=== PATIENT | female | born 1980 | race Caucasian/White ===

== ENCOUNTER 2019-10-12 07:39 | Inpatient (IN) | payer OTHER ==
[2019-10-12] MEDS ORDERED: LACTATED RINGERS 1,000 ML IV SCH (09:00)
[2019-10-12] MEDS ORDERED: HYDROmorphone 1 MG/1 ML INJ IV PRN (09:15)
[2019-10-12] MEDS ORDERED: fentaNYL 100 MCG/2 ML INJ IV NR (09:15)
[2019-10-12] MEDS ORDERED: MAGNESIUM OXIDE 400 MG TAB PO SCH (09:16)
--- NOTE | 2019-10-12 09:24 | Anesthesia Consultation ---
Anesthesia Consult and Med Hx Date of service: 10/12/19 - Airway Anesthetic Teeth Evaluation: Good ROM Head & Neck: Adequate Mental/Hyoid Distance: Adequate Mallampati Class: Class I Intubation Access Assessment: Good - Pulmonary Exam CTA: Yes - Cardiac Exam Cardiac Exam: RRR - Pre-Operative Health Status ASA Pre-Surgery Classification: ASA2 Proposed Anesthetic Plan: General Nerve Block: TAP - Pulmonary Hx Smoking: No Hx Respiratory Symptoms: No - Cardiovascular System Hx Hypertension: Yes (took antihypertensives last night) Hx Heart Attack/AMI: No Hx Percutaneous Transluminal Coronary Angioplasty (PTCA): No Hx Cardia Arrhythmia: No (rare palpitations w/o associated symptoms) - Central Nervous System CVA: No Hx Psychiatric Problems: No - Gastrointestinal Hx Gastroesophageal Reflux Disease: No - Endocrine Hx Renal Disease: No Hx Liver Disease: No Hx Insulin Dependent Diabetes: No Hx Non-Insulin Dependent Diabetes: No Hx Thyroid Disease: No - Hematic Hx Anemia: Yes - Other Systems Hx Obesity: No - Additional Comments Anesthesia Medical History Comments: No prior anesthetics or FHx anesthetic complications.
--- NOTE | 2019-10-12 09:25 | Anesthesia Day of Surgery ---
Anesthesia Day of Surgery - Day of Surgery Patient Examined: Yes Patient H&P Reviewed: Yes Patient is NPO: Yes
[2019-10-12] MEDS ORDERED: BUPIVACAINE-EPINEPHRINE/PF 0.25%-1:200,000 (30 ML) VIAL INFILTRATI ONE (09:29)
[2019-10-12] MEDS ORDERED: dexAMETHasone 4 MG/ML VIAL ONE (09:29)
[2019-10-12 09:35] LABS: Hematocrit 39.8 % (30.3-42.9); Hemoglobin 13.1 gm/dl (10.1-14.3); Mean Corpuscular HGB Conc 33 % (30-34); Mean Corpuscular Volume 83 fl (79-97); Platelet Count 271 K/mm3 (140-440)
[2019-10-12] MEDS ORDERED: CELECOXIB 200 MG CAP PO NR (10:00)
[2019-10-12] MEDS ORDERED: MIDAZOLAM 2 MG/2 ML INJ IV NR (10:00)
[2019-10-12] MEDS ORDERED: GABAPENTIN 300 MG CAP PO NR (10:00)
[2019-10-12] MEDS ORDERED: SCOPOLAMINE TRANSDERMAL PATCH 72 HR TD NR (10:00)
[2019-10-12 10:06] LABS: Red Cell Distribution Width 23.4 % (13.2-15.2)
--- NOTE | 2019-10-12 10:09 | History and Physical Report ---
History of Present Illness Date of examination: 10/12/19 Date of admission: 10/12/19 08:07 Chief complaint: Uterine fibroids History of present illness: Pt is a 39yo HF LMP presents for surgical evaluation of pelvic pain and uterine fibroids. She also complains of prolonged heavy vaginal bleeding, and pelvic u/s showed an enlarged uterus with a 9.5 x 7.4 x 6.1cm lower uterine segment mass. She desires ovarian conservation and now scheduled for a Total Abdominal Hysterectomy with Bilateral Salpingectomy. Past History Past Medical History: hypertension [employer] History: fibroids Social history: no significant social history, Medications and Allergies Allergies Allergy/AdvReac Type Severity Reaction Status Date / Time No Known Allergies Allergy Verified 10/12/19 08:43 Home Medications Medication Instructions Recorded Confirmed Last Taken Type Ferrous Sulfate [Iron 325 MG] 325 mg PO DAILY 10/11/19 10/12/19 10/10/19 History Lisinopril/Hydrochlorothiazide 1 each PO DAILY 10/11/19 10/12/19 10/11/19 21:00 History [Zestoretic 10-12.5 mg Tablet] Active Meds: Active Medications Celecoxib (Celebrex) 200 mg PO PREOP NR Fentanyl (Sublimaze) 100 mcg IV ONCE ONE Stop: 10/12/19 09:16 Gabapentin (Gabapentin) 600 mg PO PREOP NR Hydromorphone HCl (Dilaudid) 0.5 mg IV Q10MIN PRN PRN Reason: Pain , Severe (7-10) Lactated Ringer's (Lactated Ringers) 1,000 mls @ 100 mls/hr IV DIRECT LISA Last Admin: 10/12/19 09:05 Dose: 100 mls/hr Documented by: Magnesium Oxide (Mag-Ox) 400 mg PO PREOP LISA Midazolam HCl (Versed) 2 mg IV PREOP NR Stop: 10/12/19 23:59 Scopolamine (Transderm-Scop) 1 each TD PREOP NR Review of Systems All systems: negative - Vital Signs Vital signs: Vital Signs Temp Pulse Resp BP Pulse Ox 98.6 F 71 18 122/78 100 10/12/19 08:40 10/12/19 08:40 10/12/19 08:40 10/12/19 08:40 10/12/19 08:40 Temp Pulse Resp BP Pulse Ox 98.6 F 71 18 122/78 100 10/12/19 08:55 10/12/19 08:55 10/12/19 08:55 10/12/19 08:55 10/12/19 08:55 - Physical Exam Breasts: Positive: deferred Cardiovascular: Regular rate Lungs: Positive: Clear to auscultation Abdomen: Positive: normal appearance Genitourinary (Female): Positive: normal external genitalia Uterus: Positive: enlarged Extremities: Positive: normal Results Result Diagrams: 10/13/19 04:25 10/13/19 04:25 All other labs normal. Ultrasound: report reviewed Assessment and Plan - Patient Problems (1) Uterine fibroid Onset Date: 10/12/19 Current Visit: Yes Status: Acute Qualifiers: Uterine leiomyoma location: intramural, submucous, and subserous Qualified Code(s): D25.1 - Intramural leiomyoma of uterus; D25.0 - Submucous leiomyoma of uterus; D25.2 - Subserosal leiomyoma of uterus Plan to address problem: A: Symptomatic uterine fibroids Pelvic mass - suspect cervical fibroid P: Admit for a Total Abdominal Hysterectomy with Bilateral Salpingectomy
[2019-10-12] MEDS ORDERED: ROCURONIUM 50 MG/5 ML INJ IV ONE (10:53)
[2019-10-12] MEDS ORDERED: LIDOCAINE MPF (2%) 20 MG/1 ML VIAL 5 ML ONE (10:53)
[2019-10-12] MEDS ORDERED: propofoL 200 MG/20 ML VIAL IV ONE (10:54)
[2019-10-12] MEDS ORDERED: fentaNYL 100 MCG/2 ML INJ ONE (10:54)
[2019-10-12] MEDS ORDERED: MIDAZOLAM 2 MG/2 ML INJ ONE (10:54)
[2019-10-12] MEDS ORDERED: ceFAZolin/Water 2 GM/20 ML 2 GM/20 ML SYRINGE IV NR (11:00)
[2019-10-12 11:18] LABS: Band Neutrophils # (Manual) 0.1 K/mm3; Basophils % (Manual) 0 % (0.0-1.8); Total Cells Counted 100
[2019-10-12 11:19] LABS: Anisocytosis 2+; Large Platelets Rare; Platelet Estimate Consistent w Auto
[2019-10-12] MEDS ORDERED: METOCLOPRAMIDE 10 MG/2 ML INJ ONE (11:37)
[2019-10-12] MEDS ORDERED: ONDANSETRON 4 MG/2 ML INJ ONE (11:37)
[2019-10-12] MEDS ORDERED: dexAMETHasone 20 MG/5 ML VIAL ONE (11:37)
[2019-10-12] MEDS ORDERED: LACTATED RINGERS 1,000 ML ONE (11:44)
[2019-10-12] MEDS ORDERED: SODIUM CHLORIDE 0.9% IRR 1,500 ML BOTTLE IR ONE (11:49)
[2019-10-12] MEDS ORDERED: NEOSTIGMINE 10MG/10 ML INJ MDV ONE (12:50)
[2019-10-12] MEDS ORDERED: GLYCOPYRROLATE 0.4 MG/2 ML INJ ONE ×2 (12:50→12:51)
[2019-10-12] MEDS ORDERED: KETOROLAC 30 MG/1 ML INJ ONE (12:50)
--- NOTE | 2019-10-12 13:34 | Operative Report ---
Operative Report Operative Report: Date of procedure: 10/12/2019 Pre-operative diagnosis: 1. Symptomatic uterine fibroids Post-operative diagnosis: Same Procedure name(s): 1. Total abdominal hysterectomy 2. Bilateral salpingectomy Surgeon: Christopehr Haile MD Implementation Advisor: Carissa Paige CSA Anesthesia: KENNEDY Block followed by general endotracheal intubation EBL: 300 mL's Findings: A 12 -14 week size multi-myomatous uterus. Normal tubes and ovaries bilaterally. Procedure: After the patient was first correctly identified and after KENNEDY block and general anesthesia was administered she was prepped and draped in usual in the usual sterile fashion and placed in the dorsolithotomy position. The skin knife was used to make a transverse skin incision. The incision was extended down to the layer of the fascia which was nicked in the midline and extended laterally using Bovie cautery. The rectus muscles were dissected off the rectus fascia both superiorly and inferiorly, the rectus bellies in the midline and the peritoneum was entered under direct visualization. Exploration of the pelvic organs found the uterus to be enlarged with normal fallopian tubes ovaries bilaterally. The uterus was elevated in the surgical field by the use of a single-toothed tenaculum. Next the bowels were packed back and the round ligaments were grasped, cauterized and cut using the Enseal device. The right utero-ovarian ligament was clamped, cauterized and cut, thus freeing the right ovary from the right uterine sidewall. The same procedure was performed on the left. The left round ligament was clamped, cauterized and cut using the Enseal device, and the left utero-ovarian ligament was clamped, cauterized and cut thus freeing the left ovary and the left fallopian tube from the left uterine sidewall. The fallopian tubes were also cut along the mesosalpinx, thus freeing the tubes bilaterally. The uterine vessels were then skeletonized bilaterally, and the bladder flap was taken down anteriorly over 2 large lower uterine segment fibroids, with care to avoid the ureter. The uterine vessels were then doubly clamped cut and suture ligated bilaterally, and the cardinal ligaments were sequentially clamped cut and suture ligated down to the level of the uterosacral ligaments. The cervix was then amputated from the vaginal cuff and the specimen was handed off the surgical field. The vaginal cuff was then made hemostatic using several sutures of 0 Vicryl suture in a [id number] configuration. After excellent hemostasis was assured copious amounts of irrigation was then performed. The Tisseel sealant was then sprayed across the vaginal cuff and the superior pedicles bilaterally, and after excellent hemostasis was assured, the procedure was considered complete. All instruments were removed from the abdomen, and the peritoneum was closed using 0 Vicryl suture in a running interlocking fashion and the rectus muscles were also loosely re-approximated using 0 Vicryl suture in a [id number] configuration. The fascia was then re-approximated using #1 Vicryl suture in a running interlocking fashion, the subcutaneous layer made hemostatic using Bovie cautery and the skin edges re-approximated using 4-0 Vicryl suture in a sub- cuticular fashion. Patient tolerated the procedure well was transported to recovery room in stable condition.
[2019-10-12] MEDS ORDERED: oxyCODONE /ACETAMINOPHEN 5-325MG TAB PO PRN (13:35)
[2019-10-12] MEDS ORDERED: MORPHINE 4 MG/1 ML INJ IV PRN (13:35)
[2019-10-12] MEDS ORDERED: ACETAMINOPHEN 325 MG TAB PO PRN (13:35)
[2019-10-12] MEDS ORDERED: ONDANSETRON 4 MG/2 ML INJ IV PRN (13:35)
[2019-10-12] MEDS ORDERED: MAGNESIUM HYDROXIDE (MOM) ORAL LIQD UDC PO PRN (13:35)
[2019-10-12] MEDS ORDERED: D5W/LACTATED RINGERS 1,000 ML IV ONE (14:46)
[2019-10-12] MEDS: KETOROLAC 30 MG/1 ML INJ IV SCH (17:43)
[2019-10-12] MEDS: ceFAZolin/NS 1 GM/50 ML 1 GM/50 ML BAG IV SCH (17:43)
--- NOTE | 2019-10-12 20:50 | Post Anesthesia Evaluation ---
- Post Anesthesia Evaluation Patient Participated: Yes Airway Patent: Yes Stable Respiratory Function: Yes Nausea/Vomiting: No Temp > 96.8F: Yes Pain Manageable: Yes Adequeate Hydration: Yes Anesthesia Complications: No Block Receding Appropriately: Yes Patient on Ventilator: No
[2019-10-12] MEDS: D5W/LACTATED RINGERS 1,000 ML IV SCH (22:42)
[2019-10-13] MEDS: KETOROLAC 30 MG/1 ML INJ IV SCH (01:50)
[2019-10-13] MEDS: ceFAZolin/NS 1 GM/50 ML 1 GM/50 ML BAG IV SCH (01:52)
[2019-10-13 04:42] LABS: Hematocrit 33.6 % (30.3-42.9)
[2019-10-13 05:04] LABS: BUN/Creatinine Ratio 12; Blood Urea Nitrogen 6 mg/dL (7-17); Calcium 8.5 mg/dL (8.4-10.2); Hemolysis Index 12
[2019-10-13] MEDS: D5W/LACTATED RINGERS 1,000 ML IV SCH (06:00)
[2019-10-13] MEDS: HYDROcodone/ACETAMINOPHEN 5-325 MG TAB PO PRN ×2 (06:02→13:11)
--- NOTE | 2019-10-13 11:03 | Progress Note ---
Assessment and Plan - Patient Problems (1) Uterine fibroid Onset Date: 10/12/19 Current Visit: Yes Status: Resolved Qualifiers: Uterine leiomyoma location: intramural, submucous, and subserous Qualified Code(s): D25.1 - Intramural leiomyoma of uterus; D25.0 - Submucous leiomyoma of uterus; D25.2 - Subserosal leiomyoma of uterus (2) Status post total abdominal hysterectomy Onset Date: 10/13/19 Current Visit: Yes Status: Resolved Plan to address problem: A: S/P VIDAL - POD #1 Doing well Asymptomatic anemia - stable P: Continue RPOC Anticipate discharge tomorrow. Subjective - Subjective Date of service: 10/13/19 Principal diagnosis: s/p VIDAL - POD #1 Interval history: Pt is feeling well without complaints. She is tolerating a liquid diet without nausea or vomiting, ambulating and voiding without difficulty. Patient reports: appetite normal, voiding normally, pain well controlled, flatus, ambulating normally, no dizzy ambulation, no nauseated Objective - Vital Signs Latest vital signs: Vital Signs Temp Pulse Resp BP Pulse Ox 10/13/19 07:53 98.2 F 63 18 93/54 99 10/13/19 04:56 98.4 F 65 18 96/52 97 10/13/19 01:24 98.7 F 79 18 91/48 96 10/12/19 20:06 97.9 F 78 18 108/59 100 10/12/19 16:30 98.1 F 78 16 109/70 100 10/12/19 14:45 97.5 F L 77 18 109/64 100 10/12/19 14:28 76 14 102/61 100 10/12/19 14:15 98 F 81 15 100/57 100 10/12/19 14:00 72 15 98/57 100 10/12/19 13:45 62 14 91/50 100 10/12/19 13:40 64 16 97/55 100 10/12/19 13:38 12 10/12/19 13:35 71 14 99/48 100 10/12/19 13:30 70 13 97/56 100 10/12/19 13:23 98.1 F 76 15 103/58 100 Intake and Output 10/12/19 10/13/19 10/13/19 22:59 06:59 14:59 Intake Total 650 1512.5 Output Total 900 2650 Balance -250 -1137.5 Intake: IV 50 912.5 ANCEF/NS 1 GM/50 ML 1 gm 50 In 50 ml @ 100 mls/hr IV Q8H LISA Rx#:[id number] D5lr 1,000 ml @ 125 mls/ 912.5 hr IV DIRECT LISA Rx#: [id number] Oral 600 240 Intake, Free Water 360 Output: Urine 900 2650 Indwelling Catheter 900 2650 Other: Total, Intake Amount 240 240 Total, Output Amount 600 850 Voiding Method Toilet - Exam Breasts: Present: deferred Abdomen: Present: normal appearance, soft Incision: Present: normal, dry, intact, dressed - Labs Labs: Abnormal lab results 10/12/19 10/13/19 Range/Units 09:05 04:25 Seg Neuts % (Manual) 77.0 H (40.0-70.0) % Chloride 107.9 H (98-107) mmol/L Carbon Dioxide 20 L (22-30) mmol/L BUN 6 L (7-17) mg/dL Creatinine 0.5 L (0.7-1.2) mg/dL Glucose 181 H (65-100) mg/dL Laboratory Tests 10/12/19 10/12/19 10/12/19 09:05 09:05 09:05 WBC 6.5 RBC 4.80 Hgb 13.1 Hct 39.8 MCV 83 MCH 27 L MCHC 33 RDW 23.4 H Plt Count 271 Add Manual Diff Complete Total Counted 100 Seg Neuts % (Manual) 77.0 H Band Neutrophils % 1.0 Lymphocytes % (Manual) 19.0 Reactive Lymphs % (Man) 0 Monocytes % (Manual) 2.0 Eosinophils % (Manual) 1.0 Basophils % (Manual) 0 Metamyelocytes % 0 Myelocytes % 0 Promyelocytes % 0 Blast Cells % 0 Nucleated RBC % Not Reportable Seg Neutrophils # Man 5.0 Band Neutrophils # 0.1 Lymphocytes # (Manual) 1.2 Abs React Lymphs (Man) 0.0 Monocytes # (Manual) 0.1 Eosinophils # (Manual) 0.1 Basophils # (Manual) 0.0 Metamyelocytes # 0.0 Myelocytes # 0.0 Promyelocytes # 0.0 Blast Cells # 0.0 WBC Morphology Not Reportable Hypersegmented Neuts Not Reportable Hyposegmented Neuts Not Reportable Hypogranular Neuts Not Reportable Smudge Cells Not Reportable Toxic Granulation Not Reportable Toxic Vacuolation Not Reportable Dohle Bodies Not Reportable Pelger-Huet Anomaly Not Reportable Yuliya Rods Not Reportable Platelet Estimate Consistent w auto Clumped Platelets Not Reportable Plt Clumps, EDTA Not Reportable Large Platelets Rare Giant Platelets Not Reportable Platelet Satelliting Not Reportable Plt Morphology Comment Not Reportable RBC Morphology Not Reportable Dimorphic RBCs Not Reportable Polychromasia Not Reportable Hypochromasia Not Reportable Poikilocytosis Not Reportable Anisocytosis 2+ Microcytosis Not Reportable Macrocytosis Not Reportable Spherocytes Not Reportable Pappenheimer Bodies Not Reportable Sickle Cells Not Reportable Target Cells Not Reportable Tear Drop Cells Not Reportable Ovalocytes Not Reportable Helmet Cells Not Reportable Ozuna-Negley Bodies Not Reportable [place] Rings Not Reportable Adeola Cells Not Reportable Bite Cells Not Reportable Crenated Cell Not Reportable Elliptocytes Not Reportable Acanthocytes (Spur) Not Reportable Rouleaux Not Reportable Hemoglobin C Crystals Not Reportable Schistocytes Not Reportable Malaria parasites Not Reportable Lc Bodies Not Reportable Hem Pathologist Commnt No Sodium Potassium 3.7 Chloride Carbon Dioxide Anion Gap BUN Creatinine Estimated GFR BUN/Creatinine Ratio Glucose Calcium Blood Type A POSITIVE Antibody Screen Negative 10/13/19 10/13/19 04:25 04:25 WBC RBC Hgb 11.0 Hct 33.6 D MCV MCH MCHC RDW Plt Count Add Manual Diff Total Counted Seg Neuts % (Manual) Band Neutrophils % Lymphocytes % (Manual) Reactive Lymphs % (Man) Monocytes % (Manual) Eosinophils % (Manual) Basophils % (Manual) Metamyelocytes % Myelocytes % Promyelocytes % Blast Cells % Nucleated RBC % Seg Neutrophils # Man Band Neutrophils # Lymphocytes # (Manual) Abs React Lymphs (Man) Monocytes # (Manual) Eosinophils # (Manual) Basophils # (Manual) Metamyelocytes # Myelocytes # Promyelocytes # Blast Cells # WBC Morphology Hypersegmented Neuts Hyposegmented Neuts Hypogranular Neuts Smudge Cells Toxic Granulation Toxic Vacuolation Dohle Bodies Pelger-Huet Anomaly Yuliya Rods Platelet Estimate Clumped Platelets Plt Clumps, EDTA Large Platelets Giant Platelets Platelet Satelliting Plt Morphology Comment RBC Morphology Dimorphic RBCs Polychromasia Hypochromasia Poikilocytosis Anisocytosis Microcytosis Macrocytosis Spherocytes Pappenheimer Bodies Sickle Cells Target Cells Tear Drop Cells Ovalocytes Helmet Cells Ozuna-Negley Bodies [place] Rings Adeola Cells Bite Cells Crenated Cell Elliptocytes Acanthocytes (Spur) Rouleaux Hemoglobin C Crystals Schistocytes Malaria parasites Lc Bodies Hem Pathologist Commnt Sodium 141 Potassium 3.9 Chloride 107.9 H Carbon Dioxide 20 L Anion Gap 17 BUN 6 L Creatinine 0.5 L Estimated GFR > 60 BUN/Creatinine Ratio 12 Glucose 181 H Calcium 8.5 Blood Type Antibody Screen
[2019-10-14] MEDS: HYDROcodone/ACETAMINOPHEN 5-325 MG TAB PO PRN (09:08)
--- NOTE | 2019-10-14 10:16 | Progress Note ---
Assessment and Plan - Patient Problems (1) Uterine fibroid Onset Date: 10/12/19 Current Visit: Yes Status: Resolved Qualifiers: Uterine leiomyoma location: intramural, submucous, and subserous Qualified Code(s): D25.1 - Intramural leiomyoma of uterus; D25.0 - Submucous leiomyoma of uterus; D25.2 - Subserosal leiomyoma of uterus (2) Status post total abdominal hysterectomy Onset Date: 10/13/19 Current Visit: Yes Status: Resolved Plan to address problem: A: S/P VIDAL - POD #2 Doing well Asymptomatic anemia - stable P: May go home today. Subjective - Subjective Date of service: 10/14/19 Principal diagnosis: s/p VIDAL - POD #2 Interval history: Pt is feeling well without complaints. She is tolerating a reg diet without nausea or vomiting, ambulating and voiding without difficulty. Patient reports: appetite normal, voiding normally, pain well controlled, flatus, ambulating normally, no dizzy ambulation, no nauseated Objective - Vital Signs Latest vital signs: Vital Signs Temp Pulse Resp BP BP Pulse Ox 10/14/19 07:33 98.0 F 65 20 115/76 99 10/14/19 04:54 98.7 F 59 L 20 135/70 99 10/14/19 00:00 98.4 F 86 20 134/78 100 10/13/19 20:41 98.7 F 72 20 126/70 99 10/13/19 15:50 97.8 F 58 L 18 114/64 99 10/13/19 11:53 98.4 F 56 L 18 105/67 100 Intake and Output 10/13/19 10/14/19 10/14/19 22:59 06:59 14:59 Other: Voiding Method Toilet - Exam Abdomen: Present: normal appearance, soft Incision: Present: normal, dry, intact
--- NOTE | 2019-10-14 10:53 | Discharge Summary ---
Providers - Providers Date of Admission: 10/12/19 08:07 Date of discharge: 10/14/19 Attending physician: JANET SWAN Primary care physician: PATTERN HAND Hospitalization Reason for admission: other (Symptomatic uterine fibroids) Procedure: other (Total Abdominal Hysterectomy with Bilateral Salpingectomy) Episiotomy: none Laceration: none Incision: normal, dry, intact Other procedures: none complications: none Discharge diagnosis: other (s/p VIDAL with Bilateral salpingectomy) Hospital course: Pt is a 39yo HF LMP 09/29/19 who presented for surgical evaluation of pelvic pain and uterine fibroids. She also complained of prolonged heavy vaginal bleeding, and pelvic u/s showed an enlarged uterus with a 9.5 x 7.4 x 6.1cm lower uterine segment mass. She desired ovarian conservation and therefore underwent an uncomplicated Total Abdominal Hysterectomy with Bilateral Salpingectomy. By POD #2 she was tolerating a reg diet without nausea or vomiting, ambulating and voiding without difficulty. She was therefore discharged to home on POD #2 in stable condition. Condition at discharge: Good Disposition: DC-01 TO HOME OR SELFCARE - Discharge Diagnoses (1) Uterine fibroid Status: Resolved Qualifiers: Uterine leiomyoma location: intramural, submucous, and subserous Qualified Code(s): D25.1 - Intramural leiomyoma of uterus; D25.0 - Submucous leiomyoma of uterus; D25.2 - Subserosal leiomyoma of uterus (2) Status post total abdominal hysterectomy Status: Resolved Plan - Discharge Medications Prescriptions: Ibuprofen [Motrin] 800 mg PO Q8HR PRN #30 tablet PRN Reason: Pain, Mild (1-3) HYDROcodone/APAP 5-325 [[place] 5-325 mg TAB] 1 each PO Q6HR PRN #30 tablet PRN Reason: Pain, Moderate (4-6) - Provider Discharge Summary Activity: routine, no sex for 6 weeks, no heavy lifting 4 weeks, no strenuous exercise Diet: routine Instructions: routine Additional instructions: [] Smoking cessation referral if applicable(refer to patient education folder for contact #) [] Refer to [facility] Booklet Call your doctor immediately for: * Fever > 100.5 * Heavy vaginal bleeding ( >1 pad per hour) * Severe persistent headache * Shortness of breath * Reddened, hot, painful area to leg or breast * Drainage or odor from incision. * Keep incision clean and dry at all times and follow doctor's instructions regarding bathing/showering - Follow up plan Follow up: PRIMARY CARE, [Primary Care Provider] - 7 Days JANET SWAN MD [Staff Physician] - 7 Days
[2019-10-14 11:16] VITALS: BP 135/92
== END 2019-10-14 13:30 | disposition home or self-care (01) | DRG 743 ==
LOC: 3A 08:07 → OB 14:12
PROVIDERS: ADMIT Obstetrics & Gynecology; ATTEND Obstetrics & Gynecology
PROC: 0UT90ZZ Resection of Uterus, Open Approach (ICD-10-PCS; principal; 2019-10-12)
PROC: 0UT70ZZ Resection of Bilateral Fallopian Tubes, Open Approach (ICD-10-PCS; 2019-10-12)
DX: D25.1 Intramural leiomyoma of uterus (principal); I10 Essential (primary) hypertension; D25.0 Submucous leiomyoma of uterus; D25.2 Subserosal leiomyoma of uterus; D64.9 Anemia, unspecified
CPT/HCPCS: 36415; 64450; 80048; 81025; 84132; 85007; 85014; 85018; 85025; 86850; 86900; 86901; 88307; G0378; C1765; C9250; J0690; J1100; J1170; J1885; J2250; J2405; J2704; J2710; J2765; J3010; J7120; J7121